=== PATIENT | female | born 1995 | race African-American/Black ===

== ENCOUNTER → 2017-09-13 | Outpatient (CLI) | payer OTHER ==
--- NOTE | 2017-09-13 16:12 | RAD ---
Clinical Indication: Large for dates.. Technique: Study is dated September 13, 2017. No comparison study is available. Transabdominal imaging was performed. Findings: There is a single intrauterine gestation in cephalic presentation. The placenta is posterior in location without evidence of placental previa. Cervix is long and closed SHERRI subjectively is within normal limits. Biometrical data is as follows: BPD = 6.75 cm, with a corresponding gestational age of 27 weeks 1 days. HC = 25.23 cm, with a corresponding gestational age of 27 weeks 3 days. AC = 21.50 cm, with a corresponding gestational age of 26 weeks 0 days. FL = 5.01 cm, with a corresponding gestational age of 27 weeks 0 days. Ratio of head circumference to abdominal circumference is 1.17. Cephalic index is 79 %. Overall, the estimated sonographic gestational age is 26 weeks 6 days for an estimated date of delivery of December 14, 2017, concordant with provided date from LMP. Estimated weight is 949 g, 45th percentile. heart tones are 144 bpm. movement is noted. Four-chamber heart is documented. breathing was not visualized. Three-vessel cord is documented with cord insertion visualized. The stomach, kidneys, and bladder are unremarkable. The visualized spine is unremarkable. The visualized maxillofacial region and intracranial contents are within normal limits. Extremities are within normal limits. Evaluation of extremities is slightly limited. Impression: Single live intrauterine measures 26 weeks 6 days, appropriate growth compared to MARTHA by LMP.
== END | disposition home or self-care (01) ==
LOC: US 12:51
PROVIDERS: ATTEND Family Medicine
DX: O36.62X0 Maternal care for excessive fetal growth, second trimester, not applicable or unspecified (principal); Z3A.26 26 weeks gestation of pregnancy
CPT/HCPCS: 76805

== ENCOUNTER 2018-11-06 16:00 | Emergency (ER) | payer OTHER ==
[~2018-11-06] VITALS: Ht 157.5 cm; Wt 54.4 kg
[2018-11-06 17:50] VITALS: BP 105/62
--- NOTE | 2018-11-06 19:12 | PHYS DOC ---
Past Medical History Past Medical History: No Pertinent History Past Surgical History: No Surgical History Alcohol Use: None Drug Use: None Adult General Chief Complaint Chief Complaint: COUGH HPI HPI Patient is a 23 year old [f__sex] who presents with [] Review of Systems Review of Systems Constitutional: Denies fever or chills [] Eyes: Denies change in visual acuity, redness, or eye pain [] HENT: Denies nasal congestion or sore throat [] Respiratory: Denies cough or shortness of breath [] Cardiovascular: No additional information not addressed in HPI [] GI: Denies abdominal pain, nausea, vomiting, bloody stools or diarrhea [] : Denies dysuria or hematuria [] Musculoskeletal: Denies back pain or joint pain [] Integument: Denies rash or skin lesions [] Neurologic: Denies headache, focal weakness or sensory changes [] Endocrine: Denies polyuria or polydipsia [] All other systems were reviewed and found to be within normal limits, except as documented in this note. Allergies Allergies Allergies Coded Allergies Type Severity Reaction Last Updated Verified No Known Drug Allergies 03/14/15 No Physical Exam Physical Exam Constitutional: Well developed, well nourished, no acute distress, non-toxic appearance. [] HENT: Normocephalic, atraumatic, bilateral external ears normal, oropharynx moist, no oral exudates, nose normal. [] Eyes: PERRLA, EOMI, conjunctiva normal, no discharge. [] Neck: Normal range of motion, no tenderness, supple, no stridor. [] Cardiovascular:Heart rate regular rhythm, no murmur [] Lungs & Thorax: Bilateral breath sounds clear to auscultation [] Abdomen: Bowel sounds normal, soft, no tenderness, no masses, no pulsatile masses. [] Skin: Warm, dry, no erythema, no rash. [] Back: No tenderness, no CVA tenderness. [] Extremities: No tenderness, no cyanosis, no clubbing, ROM intact, no edema. [] Neurologic: Alert and oriented X 3, normal motor function, normal sensory function, no focal deficits noted. [] Psychologic: Affect normal, judgement normal, mood normal. [] Current Patient Data Vital Signs Vital Signs Date Time Temp Pulse Resp B/P (MAP) Pulse Ox O2 Delivery O2 Flow Rate FiO2 11/06/18 17:50 97.7 75 16 105/62 (76) 99 Room Air 97.7 EKG EKG [] Radiology/Procedures Radiology/Procedures [] Course & Med Decision Making Course & Med Decision Making Pertinent Labs and Imaging studies reviewed. (See chart for details) [] Dragon Disclaimer Dragon Disclaimer This electronic medical record was generated, in whole or in part, using a voice recognition dictation system. Departure Departure Impression: Primary Impression: Urinary tract infection Disposition: HOME, SELF-CARE Condition: STABLE Referrals: CHRISTY TRAVIS MD (PCP) Patient Instructions: Upper Respiratory Infection, Adult Additional Instructions: Increase fluids and rest. You may take [id number] cough and cold medication for symptom relief. Follow-up with your primary care provider in 4 days if not improving or return to the emergency department if worsening. CHARITY MCDONALD APRN Nov 06, 2018 19:12
== END 2018-11-06 19:33 | disposition home or self-care (01) ==
LOC: ER 16:00
DX: N39.0 Urinary tract infection, site not specified (principal); R05 Cough; R09.81 Nasal congestion; R51 Headache
CPT/HCPCS: 99281

== ENCOUNTER → 2019-05-06 | Outpatient (CLI) | payer OTHER ==
--- NOTE | 2019-05-06 12:59 | RAD ---
EXAM: Abdomen sonogram. HISTORY: Pain. TECHNIQUE: Sonographic imaging of the abdomen was performed. COMPARISON: None. FINDINGS: The liver is normal in size. No focal hepatic lesion is seen. The gallbladder is contracted, limiting evaluation. The common bile duct is normal in caliber. The kidneys, spleen, pancreas, aorta and inferior vena cava are unremarkable. IMPRESSION: 1. Limited evaluation of the gallbladder due to contraction. There is no convincing cholelithiasis or cholecystitis. 2. Otherwise, unremarkable abdomen sonogram. Electronically signed by: Jennifer Scruggs MD (05/06/2019 12:56 PM) [facility]
--- NOTE | 2019-05-06 14:13 | RAD ---
EXAM: Pelvic sonogram. HISTORY: Abnormal uterine bleeding. TECHNIQUE: Transabdominal and transvaginal sonographic imaging of the pelvis was performed. COMPARISON: None. FINDINGS: The uterus measures 8.0 x 3.8 x 4.7 cm. The endometrial stripe is thin, measuring less than 2 mm in thickness. The ovaries are normal in size and demonstrate normal blood flow. There is a small amount of free fluid within the cul-de-sac. There is an intrauterine contraceptive device within the lower uterine segment. IMPRESSION: 1. Intrauterine contraceptive device within the lower uterine segment. 2. Small amount of nonspecific pelvic free fluid. 3. The endometrium. Electronically signed by: Jennifer Scruggs MD (05/06/2019 2:11 PM) [place] [id number]
== END | disposition home or self-care (01) ==
LOC: US 08:38
PROVIDERS: ATTEND Family Medicine
DX: K82.0 Obstruction of gallbladder (principal); N93.8 Other specified abnormal uterine and vaginal bleeding; Z97.5 Presence of (intrauterine) contraceptive device
CPT/HCPCS: 76700; 76830; 76856

== ENCOUNTER → 2020-04-28 | Outpatient (CLI) | payer OTHER ==
--- NOTE | 2020-04-28 16:00 | KCIC ---
EXAM: Pelvic sonogram. HISTORY: Right ovarian cyst. TECHNIQUE: Sonographic imaging of the pelvis was performed. COMPARISON: 05/06/2019. FINDINGS: The uterus measures 5.5 x 3.6 x 3.0 cm. The endometrial stripe measures 3.1 abdomen thickness. The ovaries are normal in size and demonstrate normal blood flow. There is a 1.6 cm suspected dominant left ovarian follicle/follicular cyst. No right ovarian cyst seen. IMPRESSION: 1. 1.6 cm suspected dominant left ovarian follicle/follicular cyst. 2. Otherwise, unremarkable pelvic sonogram. Note is made that the previously demonstrated IUD is not seen on this exam. Electronically signed by: Jennifer Scruggs MD (04/28/2020 3:57 PM) [id number]
== END | disposition home or self-care (01) ==
LOC: KCIC US 14:51
PROVIDERS: ATTEND Family Medicine
DX: N83.201 Unspecified ovarian cyst, right side (principal)
CPT/HCPCS: 76856